=== PATIENT | male | born 1995 | race Caucasian/White ===

== ENCOUNTER 2017-12-22 11:42 | Emergency (ER) | payer OTHER ==
--- NOTE | 2017-12-22 11:53 | EDM.PDOC ---
ED HPI GENERAL MEDICAL PROBLEM - General Chief Complaint: Headache Stated Complaint: HEADACHE ISSUES Time Seen by Provider: 12/22/17 11:53 Source of Information: Reports: Patient History Limitations: Reports: No Limitations - History of Present Illness INITIAL COMMENTS - FREE TEXT/NARRATIVE: HISTORY AND PHYSICAL: History of present illness: Patient is a 22-year-old male who presents to the emergency room today with complaints of a migraine headache. He states he does have a history of migraine headaches and normally takes Imitrex, which he had stored in his vehicle. He states that this medication has been and been in the heat of the vehicle for several months. When he did take this medication he did not find relief which he attributes to the deterioration of this medication. He denies any head injury, trauma or. She does have mild light and noise sensitivity. He states if he does not take the Imitrex upon onset of the migraine he normally gets a "headache cocktail" which includes IV fluids and IV medications. Review of systems: As per history of present illness and below otherwise all systems reviewed and negative. Past medical history: As per history of present illness and as reviewed below otherwise noncontributory. Surgical history: As per history of present illness and as reviewed below otherwise noncontributory. Social history: No reported history of drug or alcohol abuse. Family history: As per history of present illness and as reviewed below otherwise noncontributory. Physical exam: General: Well-developed and well-nourished 22-year-old male. Alert and oriented. Nontoxic appearing and in no acute distress. HEENT: Atraumatic, normocephalic, pupils equal and reactive bilaterally, negative for conjunctival pallor or scleral icterus, mucous membranes moist, throat clear, neck supple, nontender, trachea midline. No drooling or trismus noted. No meningeal signs Lungs: Clear to auscultation, breath sounds equal bilaterally, chest nontender. Heart: S1S2, regular rate and rhythm without overt murmur Abdomen: Soft, nondistended, nontender. Negative for masses or hepatosplenomegaly. Negative for costovertebral tenderness. Pelvis: Stable nontender. Genitourinary: Deferred. Rectal: Deferred. Skin: Intact, warm, dry. No lesions or rashes noted. Extremities: Atraumatic, negative for cords or calf pain. Neurovascular unremarkable. Neuro: Awake, alert, oriented. Cranial nerves II through XII unremarkable. Cerebellum unremarkable. Motor and sensory unremarkable throughout. Exam nonfocal. Notes: We discussed the need for head CT which she declines. I will give him IV fluids and medications. Refill his Imitrex. Encouraged him to follow up with his primary care provider. He voices understanding and is agreeable to plan of care. Denies any further questions or concerns at this time. Diagnostics: Declines Therapeutics: IV fluid, Toradol, Benadryl, Zofran Impression: Migraine headache Plan: 1. Please take the remainder of the day to rest in a dark quiet room. 2. A prescription has been given to you for Imitrex. Take this medication as directed. 3. Follow-up with your primary care provider in the next 1-2 days. Return to the ED as needed and as discussed. Definitive disposition and diagnosis as appropriate pending reevaluation and review of above. Left Head Pain Score (Numeric/FACES): 10 - Related Data Allergies Allergy/AdvReac Type Severity Reaction Status Date / Time No Known Allergies Allergy Verified 12/22/17 12:05 Home Meds: Home Meds Lisdexamfetamine Dimesylate [Vyvanse] 50 mg PO DAILY 12/22/17 [History] ED ROS GENERAL - Review of Systems Review Of Systems: ROS reveals no pertinent complaints other than HPI. - Physical Exam Exam: See Below (See dictation) Course - Vital Signs Last Recorded V/S: Last Vital Signs Temp 97.3 F 12/22/17 12:00 Pulse 73 12/22/17 12:00 Resp 16 12/22/17 12:00 BP 121/73 12/22/17 12:00 Pulse Ox 100 12/22/17 12:00 - Orders/Labs/Meds Orders: Active Orders 24 hr Category Date Time Status Sodium Chloride 0.9% [Normal Saline] 500 ml Med 12/22/17 12:15 Active IV .BOLUS Medication Orders Sodium Chloride (Normal Saline) 500 mls @ 999 mls/hr IV .BOLUS EDUAR Meds: Medications Generic Name Dose Route Start Last Admin Trade Name Freq PRN Reason Stop Dose Admin Sodium Chloride 500 mls @ 999 mls/hr 12/22/17 12:15 Normal Saline IV .BOLUS EDUAR Discontinued Medications Generic Name Dose Route Start Last Admin Trade Name Freq PRN Reason Stop Dose Admin Diphenhydramine HCl 50 mg 12/22/17 12:07 Benadryl IVPUSH 12/22/17 12:08 ONETIME ONE Ketorolac Tromethamine 30 mg 12/22/17 12:07 Toradol IVPUSH 12/22/17 12:08 NOW STA Ondansetron HCl 4 mg 12/22/17 12:07 Zofran IVPUSH 12/22/17 12:08 ONETIME ONE Departure - Departure Time of Disposition: 12:16 Disposition: Home, Self-Care 01 Clinical Impression: Migraine - Discharge Information Instructions: Migraine Headache, [id number] Referrals: PCP,None [Primary Care Provider] - Forms: ED Department Discharge Additional Instructions: The following information is given to patients seen in the emergency department who are being discharged to home. This information is to outline your options for follow-up care. We provide all patients seen in our emergency department with a follow-up referral. The need for follow-up, as well as the timing and circumstances, are variable depending upon the specifics of your emergency department visit. If you don't have a primary care physician on staff, we will provide you with a referral. We always advise you to contact your personal physician following an emergency department visit to inform them of the circumstance of the visit and for follow-up with them and/or the need for any referrals to a consulting specialist. The emergency department will also refer you to a specialist when appropriate. This referral assures that you have the opportunity for follow-up care with a specialist. All of these measure are taken in an effort to provide you with optimal care, which includes your follow-up. Under all circumstances we always encourage you to contact your private physician who remains a resource for coordinating your care. When calling for follow-up care, please make the office aware that this follow-up is from your recent emergency room visit. If for any reason you are refused follow-up, please contact the [facility] Emergency Department at and asked to speak to the emergency department charge nurse. [facility] [address] [place] [id number] 1. Please take the remainder of the day to rest in a dark quiet room. 2. A prescription has been given to you for Imitrex. Take this medication as directed. 3. Follow-up with your primary care provider in the next 1-2 days. Return to the ED as needed and as discussed. - My Orders Last 24 Hours: My Active Orders 12/22/17 12:15 Sodium Chloride 0.9% [Normal Saline] 500 ml IV .BOLUS - Assessment/Plan Last 24 Hours: My Active Orders 12/22/17 12:15 Sodium Chloride 0.9% [Normal Saline] 500 ml IV .BOLUS
[2017-12-22] MEDS ORDERED: diphenhydrAMINE 50 MG/ML SDV IVPUSH ONE (12:07)
[2017-12-22] MEDS ORDERED: Ketorolac 15 MG/ML SDV IVPUSH STA (12:07)
[2017-12-22] MEDS ORDERED: Ondansetron 4 MG/2 ML SDV IVPUSH ONE (12:07)
[2017-12-22] MEDS ORDERED: Sodium Chloride 0.9% 500 ML IV SCH (12:15)
== END 2017-12-22 13:36 | disposition home or self-care (01) ==
LOC: MW.ED 11:42
DX: G43.909 Migraine, unspecified, not intractable, without status migrainosus (principal)
CPT/HCPCS: 96361; 96374; 96375; 99283; J1200; J1885; J2405; J7040